=== PATIENT | female | born 1980 | race African-American/Black ===

== ENCOUNTER 2018-12-24 19:48 | Emergency (ER) | payer MEDICARE, OTHER ==
[~2018-12-24] VITALS: Ht 167.6 cm; Wt 71.7 kg
[2018-12-24 21:19] VITALS: BP 120/82
== END 2018-12-24 22:26 | disposition home or self-care (01) ==
LOC: ER 19:53
DX: T78.1XXA Other adverse food reactions, not elsewhere classified, initial encounter (principal); F41.9 Anxiety disorder, unspecified; Z98.890 Other specified postprocedural states; X58.XXXA Exposure to other specified factors, initial encounter